=== PATIENT | male | born 1965 | race Caucasian/White ===

== ENCOUNTER 2018-09-07 09:52 | Day surgery (SDC) | payer BC ==
[~2018-09-07 09:52] MED LIST: ACETAMINOPHEN 1,000 MG/100 ML BTL IVPB ONE; CEFAZOLIN 2 Gram 2 GM/50 ML BAG IVPB ONE
[2018-09-07] MEDS ORDERED: MIDAZOLAM HCL 2MG/2ML VIAL IV ONE (09:53)
[2018-09-07] MEDS ORDERED: PROPOFOL 10 MG/ML VIAL IV ONE (09:53)
[2018-09-07] MEDS ORDERED: BUPIVACAINE LIPOSOME 266MG/20ML VIAL IV ONE (09:53)
[2018-09-07] MEDS ORDERED: LIDOCAINE 2% MDV (20MG/ML) 20ML VIAL IV ONE (09:53)
[2018-09-07] MEDS ORDERED: KETAMINE HCL 100MG/1ML VIAL INJ ONE (09:53)
[2018-09-07] MEDS ORDERED: GLYCOPYRROLATE 0.2 MG/ML ML IV ONE (09:53)
[2018-09-07] MEDS ORDERED: RINGERS SOLUTION,LACTATED 1,000 ML IV ONE ×2 (10:40→13:45)
[2018-09-07] MEDS ORDERED: KETOROLAC 30 MG/ML VIAL IVP ONE (14:15)
--- NOTE | 2018-09-11 08:50 | Operative Note ---
DATE OF SURGERY: 09/07/2018 PREOPERATIVE DIAGNOSIS: Right knee medial meniscus tear. POSTOPERATIVE DIAGNOSES: 1. Right knee medial meniscus tear. 2. Chondromalacia of the trochlea. 3. Degenerative tear of lateral meniscus. OPERATION: 1. Diagnostic arthroscopy. 2. Arthroscopic partial posterior horn medial meniscectomy. 3. Arthroscopic debridement and chondroplasty of femoral trochlea and debridement of degenerative lateral meniscus tear. SURGEON: Michele Villarreal MD ANESTHESIA: General endotracheal, Laurie, [employer]. COMPLICATIONS: None. ESTIMATED BLOOD LOSS: Minimal. INDICATIONS: This is a 53-year-old male who was getting up from squatting position and felt a crunching sensation in his knee. He has had persistent mechanical symptoms, catching and locking in the medial aspect of his knee and tenderness there. I saw him in the office. He had classic meniscus tear symptoms and I offered him arthroscopic surgery. Been dealing with it for about 7 months. He agreed to proceed. I explained all risks and benefits in detail for the diagnosis and procedure including but not limited to infection, nerve injury, vessel injury, persistent pain, stiffness, numbness, tingling in the knee, the fact that if he has arthrosis of the knee, this procedure will not cure that condition, could require further procedures. All his questions were answered. Rehab course was outlined. He agreed to proceed. PROCEDURE: The patient brought to the OR, placed in the supine position, prepped for surgery. General endotracheal anesthesia induced. The right lower extremity and knee were prepped and draped in sterile fashion. Prepped again with Chloraprep after it was draped. Intraoperative timeout was performed. Next, preoperative exam revealed full knee range of motion. There was some catching/snapping sensation in the medial compartment with Spencer test. Next, the knee was injected with 0.5% Marcaine with epinephrine. Standard superolateral inflow portals established. Inferomedial and lateral portals established. Diagnostic arthroscopy performed. Suprapatellar pouch was normal. Medial gutter was normal. Medial compartment revealed a radial complex tear of the posterior horn of the medial meniscus. We immediately used a combination of basket biters and luis and smoothed and trimmed out the posterior horn to a smooth stable surface, contouring with the middle horn moving about 60% to 70% of the meniscus. The anterior horn was intact. Cartilage here was intact. The intracondylar notch was normal. ACL and PCL were intact. The lateral compartment had some degenerative fraying of the edge of the lateral meniscus. We used a shaver and debrided that back lightly to a smooth stable surface. The lateral gutter was normal. Patellofemoral compartment had a small area of some chondromalacia in the trochlea. Some loose cartilage fragments debrided with a shaver. This completed the procedure. Scope and equipment was removed. We bolused the knee with 0.5% Marcaine with epinephrine and Exparel. Infiltrated around the incisions and sterile dressing applied, Imer wrap. Patient tolerated procedure well. No intraoperative complications. All sponge, needle, and blade counts correct. Recovery stable, neurovascularly intact. To be discharged as an outpatient and follow up in 2 weeks. JEANNIE
== END 2018-09-07 14:50 | disposition home or self-care (01) ==
LOC: SUR 09:52
PROVIDERS: ATTEND Orthopaedic Surgery
DX: S83.231A Complex tear of medial meniscus, current injury, right knee, initial encounter (principal); S83.281A Other tear of lateral meniscus, current injury, right knee, initial encounter; I10 Essential (primary) hypertension; K21.9 Gastro-esophageal reflux disease without esophagitis; R94.5 Abnormal results of liver function studies; M22.41 Chondromalacia patellae, right knee
CPT/HCPCS: 29881; 01400; J1885; J0690; C9290; J3490; J7120